=== PATIENT | male | born 1965 | race African-American/Black ===

== ENCOUNTER 2019-11-27 10:13 | Inpatient (IN) | payer OTHER ==
[2019-11-27 11:24] VITALS: BMI 18.3
--- NOTE | 2019-11-27 11:45 | HP ---
CIWA Score Nausea/Vomitin-Mild Nausea/No Vomiting Muscle Tremors: 2 Anxiety: 3 Agitation: 3 Paroxysmal Sweats: No Perspiration Orientation: 0-Oriented Tacttile Disturbances: 1-Very Mild Itch/Numbness Auditory Disturbances: 0-None Visual Disturbances: 1-Very Mild Sensitivity Headache: 2-Mild CIWA-Ar Total Score: 13 - Admission Criteria OASAS Guidelines: Admission for Medically Managed Detox: Requires at least one of the followin. CIWA greater than 12 2. Seizures within the past 24 hours 3. Delirium tremens within the past 24 hours 4. Hallucinations within the past 24 hours 5. Acute intervention needed for co occurring medical disorder 6. Acute intervention needed for co occurring psychiatric disorder 7. Severe withdrawal that cannot be handled at a lower level of care (continued vomiting, continued diarrhea, abnormal vital signs) requiring intravenous medication and/or fluids 8. 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: Peripheral Neuropathy Cardiovascular: Yes: HTN - Smoking History Smoking history: Current every day smoker Have you smoked in the past 12 months: Yes Aproximately how many cigarettes per day: 20 - Alcohol/Substance Use Hx Alcohol Use: No Admission ROS BHS - HPI Chief Complaint: I drink all day and smoke crack - I want to stop - I lost too much weight - i want to get myself back together - I can't do it by myself - I want to go to rehab after detox Allergies/Adverse Reactions: Allergies Allergy/AdvReac Type Severity Reaction Status Date / Time No Known Drug Allergies Allergy Verified 11/27/19 10:57 tomato Allergy Verified 11/27/19 10:57 History of Present Illness: 54 yo gentleman with AIDS here for detox from alcohol, also using crack. Denies seizures but does have black outs. Previously here in 2016. States he has been drinking for 42 years and has had multiple admissions elsewhere for detox and rehab. Patient on disability , lives in [facility] in [place]. Per [facility] patient has been prescribed suboxone for over a year - states previously was on methadone program - he states he does not take the suboxone ( urine tox negative for buprenorphine) and it's at his home and is refusing to take it here. History of heroin use a week ago - states he snorts it once a month 'when I can get it'. He states he was in [facility] 11/23-11/25/19 but left AMA as he had a court date - he thinks he was treated for a cough - he did not bring the discharge papers - the hospital was contacted and some information was sent - CXR normal - no evidence of disease; flu A and B and RSV were negative, troponin <.01, blood culture 11/23/19 preliminary results negative, lactate 1.8, EKG showed normal sinus rhythm. Patient came in with medication bottles including antibiotics - dated 11/18/19 - these will be continued. Exam Limitations: No Limitations - Review of Systems Constitutional: Loss of Appetite, Changes in sleep, Weakness, Unintentional Wgt. Loss EENT: reports: No Symptoms Reported Respiratory: reports: Cough Cardiac: reports: No Symptoms Reported GI: reports: Nausea, Poor Appetite, Vomiting, Abdominal cramping : reports: Frequency Musculoskeletal: reports: No Symptoms Reported Integumentary: reports: Dryness Neuro: reports: Headache, Numbness Endocrine: reports: No Symptoms Reported Hematology: reports: No Symptoms Reported Psychiatric: reports: Judgement Intact, Mood/Affect Appropiate, Anxious Other Systems: Reviewed and Negative Patient History - Patient Medical History Hx Anemia: No Hx Asthma: Yes (has inhaler) Hx Chronic Obstructive Pulmonary Disease (COPD): No Hx Cancer: No Hx Cardiac Disorders: No Hx Congestive Heart Failure: No Hx Hypertension: Yes (poor adherence with meds) Hx Hypercholesterolemia: Yes (poor adherence) Hx Pacemaker: No HX Cerebrovascular Accident: No Hx Seizures: No Hx Dementia: No Hx Diabetes: No Hx Gastrointestinal Disorders: No Hx Liver Disease: No Hx Genitourinary Disorders: No Hx Sexually Transmitted Disorders: No (DENIES) Hx Renal Disease (ESRD): No Hx Thyroid Disease: No Hx Human Immunodeficiency Virus (HIV): Yes (diagnosed in 1997; no meds - thinks CD4=52 ) Hx Hepatitis C: Yes (treated 2017) Hx Depression: No Hx Suicide Attempt: No (DENIES) Hx Bipolar Disorder: No Hx Schizophrenia: No Other Medical History: eczema - Patient Surgical History Past Surgical History: No Hx Neurologic Surgery: No Hx Cataract Extraction: No Hx Cardiac Surgery: No Hx Lung Surgery: No Hx Breast Surgery: No Hx Breast Biopsy: No Hx Abdominal Surgery: No Hx Appendectomy: No Hx Cholecystectomy: No Hx Genitourinary Surgery: No Hx Section: No Hx Orthopedic Surgery: No Hx Hysterectomy: No Anesthesia Reaction: No - PPD History Previous Implant?: Yes Documented Results: Negative w/proof Implanted On Prior [facility] Admission?: Yes Date: 06/06/16 PPD to be Administered?: No - Reproductive History Patient is a Female of Child Bearing Age (11 -55 yrs old): No - Smoking Cessation Smoking history: Current every day smoker Have you smoked in the past 12 months: Yes Aproximately how many cigarettes per day: 20 Hx Chewing Tobacco Use: No Initiated information on smoking cessation: Yes 'Breaking Loose' booklet given: 11/27/19 (give on floor) - Substance & Tx. History Hx Alcohol Use: Yes Hx Substance Use: Yes Substance Use Type: Alcohol, Cocaine Hx Substance Use Treatment: Yes (detox, rehab) - Substances abused Alcohol Substance route: Oral Frequency: Daily Amount used: 8 quart of beer Age of first use: 15 Date of last use: 11/27/19 Crack Substance route: Smoking Frequency: Daily Amount used: $1000 Age of first use: 26 Date of last use: 11/27/19 Admission Physical Exam S - Vital Signs Vital Signs: Vital Signs - 24 hr 11/27/19 11:14 Temperature 100.4 F H Pulse Rate 101 H Respiratory 20 Rate Blood Pressure 125/76 - Physical General Appearance: Yes: Appropriately Dressed, Mild Distress, Thin, Irritable, Anxious HEENTM: Yes: EOMI, Hearing grossly Normal, Normocephalic, Normal Voice, Pharynx Normal Respiratory: Yes: No Respiratory Distress, Rhonchi Neck: Yes: No masses,lesions,Nodules Breast: Yes: Breast Exam Deferred Cardiology: Yes: Regular Rhythm, Tachycardia Abdominal: Yes: Flat, Soft Genitourinary: Yes: Frequency Back: Yes: Normal Inspection Musculoskeletal: Yes: full range of Motion, Gait Steady Extremities: Yes: Normal Inspection, Normal Range of Motion, Tremors Neurological: Yes: Normal Mood/Affect, Normal Response, Numbness Integumentary: Yes: Normal Color, Dry, Warm, Rash (dry, ashy skin arms and legs - states eczema - no open sores noted) Lymphatic: Yes: Within Normal Limits - Diagnostic (1) Alcohol dependence with withdrawal, uncomplicated Current Visit: Yes Status: Chronic (2) AIDS (acquired immune deficiency syndrome) Current Visit: Yes Status: Chronic (3) Cocaine dependence, uncomplicated Current Visit: Yes Status: Chronic (4) Eczema Current Visit: Yes Status: Chronic Qualifiers: Eczema type: unspecified Qualified Code(s): L30.9 - Dermatitis, unspecified (5) Weight loss observed on examination Current Visit: Yes Status: Chronic (6) Cough Current Visit: Yes Status: Acute (7) 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 Current Visit: Yes Status: Chronic (8) Heroin abuse Current Visit: Yes Status: Chronic (9) Underweight Current Visit: Yes Status: Acute Comment: patient has lost about 70lbs since 2014 Cleared for Admission S - Detox or Rehab [facility] Level of Care: Medically Managed Detox Regimen/Protocol: Librium Breathalyzer - Breathalyzer Breathalyzer: 0.003 Urine Drug Screen - Test Device Lot number: [id number] Expiration date: 09/20/21 - Control Is test valid?: Yes - Results Drug screen NEGATIVE: No Urine drug screen results: GLORIA-Cocaine Inpatient Rehab Admission - Rehab Decision to Admit Inpatient rehab admission?: No
[2019-11-27] MEDS ORDERED: guaiFENesin 200 MG/10 ML 10 ML UNIT-DOSE CUPS PO PRN (12:56)
[2019-11-27] MEDS ORDERED: MAGNESIUM HYDROX 2400MG/30ML ORAL SUSPENSION 30 ML CUP PO PRN (12:56)
[2019-11-27] MEDS ORDERED: ACETAMINOPHEN 325 MG TABLET (FP) PO PRN ×2 (12:56)
[2019-11-27] MEDS ORDERED: IBUPROFEN 400 MG TABLET (FP) PO PRN (12:56)
[2019-11-27] MEDS ORDERED: MENTHOL/PHENOL 1 EACH UD MM PRN (12:56)
[2019-11-27] MEDS ORDERED: MAG HYDROX/AL HYDROX/SIMETH 30 ML UNIT-DOSE CUP PO PRN (12:56)
[2019-11-27] MEDS ORDERED: NICOTINE POLACRILEX 4 MG GUM BUC PRN (12:56)
[2019-11-27] MEDS ORDERED: MAGNESIUM CITRATE 300 ML BOTTLE PO PRN (12:56)
[2019-11-27] MEDS ORDERED: BISMUTH SUBSALICYLATE 524 MG/30 ML UD PO PRN (12:56)
[2019-11-27] MEDS ORDERED: METHOCARBAMOL 500 MG TABLET PO PRN (12:56)
[2019-11-27] MEDS ORDERED: chlordiazePOXIDE HCL 25 MG CAPSULE PO PRN (12:59)
[2019-11-27] MEDS ORDERED: ALBUTEROL SO4 8 GM HFA INHALER IH PRN (12:59)
[2019-11-27] MEDS ORDERED: chlordiazePOXIDE HCL 25 MG CAPSULE PO ONE (12:59)
[2019-11-27] MEDS ORDERED: AZITHROMYCIN 600 MG TABLET PO SCH (13:00)
[2019-11-27] MEDS ORDERED: AMMONIUM LACTATE 12% LOTION 225 GM BOTTLE TP PRN (13:04)
[2019-11-27] MEDS ORDERED: COLLOIDAL OATMEAL 1 BAR EACH TP PRN (13:04)
--- NOTE | 2019-11-27 16:29 | EKG ---
Test Reason : Blood Pressure : / mmHG Vent. Rate : 089 BPM Atrial Rate : 089 BPM P-R Int : 120 ms QRS Dur : 082 ms QT Int : 382 ms P-R-T Axes : 087 085 080 degrees QTc Int : 464 ms NORMAL SINUS RHYTHM NORMAL ECG NO PREVIOUS ECGS AVAILABLE Confirmed by MD SAMARIA, MELISSA ([id number]) on 11/27/2019 4:29:09 PM Referred By: Lowell Rosario Confirmed By:MELISSA MERA MD
[2019-11-27] MEDS: chlordiazePOXIDE HCL 25 MG CAPSULE PO SCH ×2 (17:30→23:20)
[2019-11-27] MEDS ORDERED: MELATONIN 5 MG TABLETS PO PRN (22:00)
[2019-11-27] MEDS: FLUCONAZOLE 100 MG TABLET (UD) PO SCH (23:09)
[2019-11-27] MEDS: RIFAXIMIN 550 MG TABLET (UD) PO SCH (23:13)
[2019-11-27] MEDS: ATORVASTATIN CA 40 MG TABLET (FP) PO SCH (23:21)
[2019-11-27] MEDS: THIAMINE HCL 100 MG TABLET (FP) PO SCH (23:21)
[2019-11-27] MEDS: AMOX TR/POT CLAV 875MG/125MG TABLETS (FP) PO SCH (23:21)
[2019-11-28] MEDS: chlordiazePOXIDE HCL 25 MG CAPSULE PO SCH ×4 (06:35→22:46)
[2019-11-28] MEDS: AMOX TR/POT CLAV 875MG/125MG TABLETS (FP) PO SCH ×2 (07:08→17:39)
[2019-11-28] MEDS ORDERED: ASPIRIN 81 MG CHEWABLE TABLETS PO SCH (10:00)
[2019-11-28] MEDS ORDERED: PRENATAL VITAMINS W/ FOLIC ACID TABLET (FP) PO SCH (10:00)
[2019-11-28] MEDS ORDERED: amLODIPine BESYLATE 10 MG TABLET (FP) PO SCH (10:00)
[2019-11-28] MEDS: FLUCONAZOLE 100 MG TABLET (UD) PO SCH (11:14)
[2019-11-28 12:10] LABS: HEMATOCRIT 30.4 % (35.4-49); HEMOGLOBIN 10.2 GM/dL (11.7-16.9); MCH 30.7 pg (25.7-33.7); MCHC 33.5 g/dl (32.0-35.9); MEAN CELL VOLUME 91.8 fl (80-96); MEAN PLT VOLUME 8.1 fl (7.5-11.1); PLATELET COUNT 225 K/MM3 (134-434); RBC 3.31 M/mm3 (4.00-5.60); RDW 14.4 % (11.9-15.9); WHITE BLOOD COUNT 5.9 K/mm3 (4.0-10.0)
[2019-11-28 12:13] LABS: ALBUMIN 2.2 g/dl (3.4-5.0); BILIRUBIN,TOTAL 0.2 mg/dL (0.2-1); BLOOD UREA NITROGEN 13.7 mg/dL (7-18); CALCIUM 8.2 mg/dL (8.5-10.1); POTASSIUM 3.9 mmol/L (3.5-5.1); TOT PROT 7.2 g/dl (6.4-8.2)
--- NOTE | 2019-11-28 12:52 | PN ---
[facility] CIWA - CIWA Score Nausea/Vomitin-Mild Nausea/No Vomiting Muscle Tremors: 3 Anxiety: 2 Agitation: 0-Normal Activity Paroxysmal Sweats: 2 Orientation: 0-Oriented Tacttile Disturbances: 0-None Auditory Disturbances: 1-Very Mild Visual Disturbances: 1-Very Mild Sensitivity Headache: 0-None Present CIWA-Ar Total Score: 10 S Progress Note (SOAP) Subjective: 54 years old male admitted on 11/27/19 for alcohol withdrawal sx management treating with libium detox regiment patient is taking augmentin zithromax and bacitracin negative chest x ray negative bleed culture - [facility] patient had one low grade fever yesterday 11/27/19 doing ok today Objective: 11/28/19 12:55 Vital Signs Temperature 96.7 F L 11/28/19 11:25 Pulse Rate 116 H 11/28/19 11:25 Respiratory Rate 18 11/28/19 11:25 Blood Pressure 124/72 11/28/19 11:25 O2 Sat by Pulse Oximetry (%) Laboratory Last Values WBC 5.9 K/mm3 (4.0-10.0) 11/28/19 07:20 RBC 3.31 M/mm3 (4.00-5.60) L 11/28/19 07:20 Hgb 10.2 GM/dL (11.7-16.9) L 11/28/19 07:20 Hct 30.4 % (35.4-49) L D 11/28/19 07:20 MCV 91.8 fl (80-96) 11/28/19 07:20 MCH 30.7 pg (25.7-33.7) 11/28/19 07:20 MCHC 33.5 g/dl (32.0-35.9) 11/28/19 07:20 RDW 14.4 % (11.9-15.9) 11/28/19 07:20 Plt Count 225 K/MM3 (134-434) 11/28/19 07:20 MPV 8.1 fl (7.5-11.1) D 11/28/19 07:20 Sodium 140 mmol/L (136-145) 11/28/19 07:20 Potassium 3.9 mmol/L (3.5-5.1) 11/28/19 07:20 Chloride 107 mmol/L (98-107) 11/28/19 07:20 Carbon Dioxide 26 mmol/L (21-32) 11/28/19 07:20 Anion Gap 7 MMOL/L (8-16) L 11/28/19 07:20 BUN 13.7 mg/dL (7-18) 11/28/19 07:20 Creatinine 1.0 mg/dL (0.55-1.3) 11/28/19 07:20 Est GFR (CKD-EPI)AfAm 97.08 11/28/19 07:20 Est GFR (CKD-EPI)NonAf 83.76 11/28/19 07:20 Random Glucose 115 mg/dL (74-106) H 11/28/19 07:20 Calcium 8.2 mg/dL (8.5-10.1) L 11/28/19 07:20 Total Bilirubin 0.2 mg/dL (0.2-1) 11/28/19 07:20 AST 15 U/L (15-37) 11/28/19 07:20 ALT 13 U/L (13-61) 11/28/19 07:20 Alkaline Phosphatase 46 U/L (45-117) 11/28/19 07:20 Total Protein 7.2 g/dl (6.4-8.2) 11/28/19 07:20 Albumin 2.2 g/dl (3.4-5.0) L 11/28/19 07:20 lab noted Assessment: 11/28/19 12:56 alcohol withdrawal Plan: librium regiment
[2019-11-28] MEDS: RIFAXIMIN 550 MG TABLET (UD) PO SCH ×2 (15:16→22:45)
[2019-11-28] MEDS: THIAMINE HCL 100 MG TABLET (FP) PO SCH (22:45)
[2019-11-28] MEDS: ATORVASTATIN CA 40 MG TABLET (FP) PO SCH (22:45)
[2019-11-29] MEDS ORDERED: chlordiazePOXIDE HCL 25 MG CAPSULE PO SCH (05:00)
[2019-11-29 06:39] VITALS: BP 126/67; PULSE 81; TEMP 97.4
[2019-11-29] MEDS: AMOX TR/POT CLAV 875MG/125MG TABLETS (FP) PO SCH (07:13)
--- NOTE | 2019-11-29 10:04 | PN ---
S CIWA - CIWA Score Nausea/Vomitin-No Nausea/No Vomiting Muscle Tremors: 2 Anxiety: 2 Agitation: 1-Slight > Activity Paroxysmal Sweats: 2 Orientation: 0-Oriented Tacttile Disturbances: 0-None Auditory Disturbances: 0-None Visual Disturbances: 0-None Headache: 0-None Present CIWA-Ar Total Score: 7 BHS Progress Note (SOAP) Subjective: 54 years old male admitted on 11/28/19 for opiate withdrawal sx management t treating with librium detox regiment feeling ok today ambulating with cane from bed to bathroom steady gait determines to maintain sober through aftercare recovery Objective: 11/29/19 10:32 Vital Signs Temperature 97.4 F L 11/29/19 05:30 Pulse Rate 81 11/29/19 05:30 Respiratory Rate 18 11/29/19 05:30 Blood Pressure 126/67 11/29/19 05:30 O2 Sat by Pulse Oximetry (%) Laboratory Last Values WBC 5.9 K/mm3 (4.0-10.0) 11/28/19 07:20 RBC 3.31 M/mm3 (4.00-5.60) L 11/28/19 07:20 Hgb 10.2 GM/dL (11.7-16.9) L 11/28/19 07:20 Hct 30.4 % (35.4-49) L D 11/28/19 07:20 MCV 91.8 fl (80-96) 11/28/19 07:20 MCH 30.7 pg (25.7-33.7) 11/28/19 07:20 MCHC 33.5 g/dl (32.0-35.9) 11/28/19 07:20 RDW 14.4 % (11.9-15.9) 11/28/19 07:20 Plt Count 225 K/MM3 (134-434) 11/28/19 07:20 MPV 8.1 fl (7.5-11.1) D 11/28/19 07:20 Sodium 140 mmol/L (136-145) 11/28/19 07:20 Potassium 3.9 mmol/L (3.5-5.1) 11/28/19 07:20 Chloride 107 mmol/L (98-107) 11/28/19 07:20 Carbon Dioxide 26 mmol/L (21-32) 11/28/19 07:20 Anion Gap 7 MMOL/L (8-16) L 11/28/19 07:20 BUN 13.7 mg/dL (7-18) 11/28/19 07:20 Creatinine 1.0 mg/dL (0.55-1.3) 11/28/19 07:20 Est GFR (CKD-EPI)AfAm 97.08 11/28/19 07:20 Est GFR (CKD-EPI)NonAf 83.76 11/28/19 07:20 Random Glucose 115 mg/dL (74-106) H 11/28/19 07:20 Calcium 8.2 mg/dL (8.5-10.1) L 11/28/19 07:20 Total Bilirubin 0.2 mg/dL (0.2-1) 11/28/19 07:20 AST 15 U/L (15-37) 11/28/19 07:20 ALT 13 U/L (13-61) 11/28/19 07:20 Alkaline Phosphatase 46 U/L (45-117) 11/28/19 07:20 Total Protein 7.2 g/dl (6.4-8.2) 11/28/19 07:20 Albumin 2.2 g/dl (3.4-5.0) L 11/28/19 07:20 RPR Titer Nonreactive (NONREACTIVE) 11/28/19 07:20 lab noted Assessment: 11/29/19 10:32 alcohol withdrawal Plan: librium regiment
--- NOTE | 2019-11-29 11:42 | DS ---
[facility] Detox Discharge Summary Admission Date: 11/27/19 Discharge Date: 11/29/19 - History Present History: Alcohol Dependence Additional Comments: 54 years old male admitted on 11/27/19 for alcohol withdrawal sx management treated with librium detox regiment patient insists to leave the detox unit that "slipper" is not allow in detox unit reports "down stair" doctor granted Mr Wood with the slipper patient is slipper preoccupied at this time insists to leave the detox unit against medical advice is appropriated - Physical Exam Results Vital Signs: Vital Signs Temperature 97.4 F L 11/29/19 05:30 Pulse Rate 81 11/29/19 05:30 Respiratory Rate 18 11/29/19 05:30 Blood Pressure 126/67 11/29/19 05:30 O2 Sat by Pulse Oximetry (%) Pertinent Admission Physical Exam Findings: alcohol withdrawal Laboratory Last Values WBC 5.9 K/mm3 (4.0-10.0) 11/28/19 07:20 RBC 3.31 M/mm3 (4.00-5.60) L 11/28/19 07:20 Hgb 10.2 GM/dL (11.7-16.9) L 11/28/19 07:20 Hct 30.4 % (35.4-49) L D 11/28/19 07:20 MCV 91.8 fl (80-96) 11/28/19 07:20 MCH 30.7 pg (25.7-33.7) 11/28/19 07:20 MCHC 33.5 g/dl (32.0-35.9) 11/28/19 07:20 RDW 14.4 % (11.9-15.9) 11/28/19 07:20 Plt Count 225 K/MM3 (134-434) 11/28/19 07:20 MPV 8.1 fl (7.5-11.1) D 11/28/19 07:20 Sodium 140 mmol/L (136-145) 11/28/19 07:20 Potassium 3.9 mmol/L (3.5-5.1) 11/28/19 07:20 Chloride 107 mmol/L (98-107) 11/28/19 07:20 Carbon Dioxide 26 mmol/L (21-32) 11/28/19 07:20 Anion Gap 7 MMOL/L (8-16) L 11/28/19 07:20 BUN 13.7 mg/dL (7-18) 11/28/19 07:20 Creatinine 1.0 mg/dL (0.55-1.3) 11/28/19 07:20 Est GFR (CKD-EPI)AfAm 97.08 11/28/19 07:20 Est GFR (CKD-EPI)NonAf 83.76 11/28/19 07:20 Random Glucose 115 mg/dL (74-106) H 11/28/19 07:20 Calcium 8.2 mg/dL (8.5-10.1) L 11/28/19 07:20 Total Bilirubin 0.2 mg/dL (0.2-1) 11/28/19 07:20 AST 15 U/L (15-37) 11/28/19 07:20 ALT 13 U/L (13-61) 11/28/19 07:20 Alkaline Phosphatase 46 U/L (45-117) 11/28/19 07:20 Total Protein 7.2 g/dl (6.4-8.2) 11/28/19 07:20 Albumin 2.2 g/dl (3.4-5.0) L 11/28/19 07:20 RPR Titer Nonreactive (NONREACTIVE) 11/28/19 07:20 lab noted - Treatment Hospital Course: Detox Protocol Followed Patient has Accepted a Rehab Referral to: [facility] - Medication Discharge Medications: Ambulatory Orders Albuterol Sulfate Inhaler - [Ventolin HFA Inhaler -] 1 - 2 inh PO PRN PRN Amlodipine Besylate [Norvasc -] 10 mg PO DAILY 11/27/19 Amoxicillin/Potassium Clav [Augmentin 875-125 Tablet] 1 each PO BID 11/27/19 Aspirin [ASA -] 81 mg PO DAILY 11/27/19 Atorvastatin Calcium 40 mg PO HS 11/27/19 Azithromycin [Zithromax 600mg Tablets -] 1,200 mg PO WEEKLY 11/27/19 Buprenorphine/Naloxone [Suboxone 8Mg/2Mg Sl Film -] 1 each SL TID 11/27/19 Fluconazole [Diflucan -] 100 mg PO DAILY 11/27/19 Multivitamins [Multivit ([facility] Formulary)] 1 tab PO DAILY 11/27/19 Propranolol HCl [Propranolol HCl ER] 80 mg PO DAILY 11/27/19 Rifaximin [Xifaxan -] 550 mg PO BID 11/27/19 Sulfamethoxazole/Trimethoprim [Sulfamethoxazole-Tmp Ss Tablet] 1 each PO MOWEFR 11/27/19 Zolpidem Tartrate [Ambien] 10 mg PO HS 11/27/19 - Diagnosis (1) AIDS (acquired immune deficiency syndrome) Status: Chronic (2) Alcohol dependence with withdrawal, uncomplicated Status: Acute (3) Eczema Status: Chronic Qualifiers: Eczema type: unspecified Qualified Code(s): L30.9 - Dermatitis, unspecified (4) Hypertension Status: Chronic Qualifiers: Hypertension type: essential hypertension Qualified Code(s): I10 - Essential (primary) hypertension - AMA Did Patient Leave Against Medical Advice: Yes
[2019-11-29] MEDS ORDERED: SULFAMETHOXAZOLE/TRIMETHOPRIM 400MG/80MG S.S. TABLET PO SCH (12:59)
[2019-11-30] MEDS ORDERED: chlordiazePOXIDE HCL 10 MG CAPSULE PO PRN
[2019-11-30] MEDS ORDERED: chlordiazePOXIDE HCL 10 MG CAPSULE PO SCH (05:00)
[2019-12-01] MEDS ORDERED: chlordiazePOXIDE HCL 10 MG CAPSULE PO SCH (05:00)
[2019-12-02] MEDS ORDERED: chlordiazePOXIDE HCL 10 MG CAPSULE PO ONE (05:00)
== END 2019-11-29 09:22 | disposition left against medical advice (07) | DRG 770 ==
LOC: YASAS 10:13 → Y3N 14:06
PROVIDERS: ADMIT Allergy & Immunology; ATTEND Allergy & Immunology
PROC: HZ2ZZZZ Detoxification Services for Substance Abuse Treatment (ICD-10-PCS; principal; 2019-11-27)
DX: F10.230 Alcohol dependence with withdrawal, uncomplicated (principal); F14.20 Cocaine dependence, uncomplicated; F11.10 Opioid abuse, uncomplicated; F17.210 Nicotine dependence, cigarettes, uncomplicated; B20 Human immunodeficiency virus [HIV] disease; I10 Essential (primary) hypertension; E78.00 Pure hypercholesterolemia, unspecified; J45.909 Unspecified asthma, uncomplicated; R63.6 Underweight; Z68.1 Body mass index [BMI] 19.9 or less, adult; Z86.19 Personal history of other infectious and parasitic diseases; Z79.82 Long term (current) use of aspirin; Z91.018 Allergy to other foods; Z99.89 Dependence on other enabling machines and devices
CPT/HCPCS: 36415; 80053; 85027; 86593; 93005; 93010

== ENCOUNTER 2023-04-30 21:07 | Inpatient (IN) | payer OTHER ==
[2023-04-30 22:30] VITALS: BMI 15.8
[2023-05-01] MEDS ORDERED: ACETAMINOPHEN 325 MG TABLET (FP) PO PRN (00:18)
[2023-05-01] MEDS ORDERED: ONDANSETRON *ODT* 4 MG TABLET SL PRN (00:18)
[2023-05-01] MEDS ORDERED: MAG HYDROX/AL HYDROX/SIMETH 30 ML UNIT-DOSE CUP PO PRN (00:18)
[2023-05-01] MEDS ORDERED: guaiFENesin 600 MG TABLET.ER (FP) PO PRN (00:18)
[2023-05-01] MEDS ORDERED: BENZONATATE 200 MG CAPSULE PO PRN (00:18)
[2023-05-01] MEDS ORDERED: LOPERAMIDE HCL 2 MG CAPSULE PO PRN (00:18)
[2023-05-01] MEDS ORDERED: MAGNESIUM HYDROX 2400MG/30ML ORAL SUSPENSION 30 ML CUP PO PRN (00:18)
[2023-05-01] MEDS ORDERED: IBUPROFEN 600 MG TABLET (FP) PO PRN (00:18)
[2023-05-01] MEDS ORDERED: BENZOCAINE/MENTHOL (CHLORASEPTIC ) LOZENGE MM PRN (00:18)
[2023-05-01] MEDS ORDERED: METHOCARBAMOL 500 MG TABLET PO PRN (00:18)
[2023-05-01] MEDS ORDERED: IBUPROFEN 400 MG TABLET (FP) PO PRN (00:18)
[2023-05-01] MEDS ORDERED: NALOXONE HCL 0.4 MG/ML VIAL IM PRN (00:18)
[2023-05-01] MEDS ORDERED: DICYCLOMINE HCL 10 MG CAPSULE PO PRN (00:18)
[2023-05-01] MEDS ORDERED: POLYETHYLENE GLYCOL (HEALTHYLAX) 3350 17 GM PACKET PO PRN (00:18)
[2023-05-01] MEDS ORDERED: NICOTINE POLACRILEX 2 MG GUM BUC PRN (00:18)
[2023-05-01] MEDS ORDERED: BISMUTH SUBSALICYLATE 524 MG/30 ML PO PRN (00:18)
[2023-05-01] MEDS ORDERED: NALOXONE HCL (KLOXXADO) 8 MG SPRAY NS PRN (00:18)
[2023-05-01] MEDS: PRENATAL VITAMINS W/ FOLIC ACID TABLET (FP) PO SCH (10:27)
[2023-05-01] MEDS: NICOTINE 14 MG/24 HOURS TOPICAL PATCH TD SCH (10:27)
[2023-05-01 12:38] LABS: POTASSIUM 4.3 mmol/L (3.5-5.1)
[2023-05-01 12:41] LABS: HEMATOCRIT 28.9 % (35.4-49); HEMOGLOBIN 9.5 GM/dL (11.7-16.9); MCH 29.4 pg (25.7-33.7); MEAN CELL VOLUME 88.9 fl (80-96); MEAN PLT VOLUME 7.9 fl (7.5-11.1); PLATELET COUNT 274 10^3/uL (134-434); RBC 3.25 M/mm3 (4.00-5.60); RDW 18.4 % (11.9-15.9); WHITE BLOOD COUNT 4.4 K/mm3 (4.0-10.0)
[2023-05-01 12:43] LABS: CALCIUM 8.9 mg/dL (8.5-10.1)
[2023-05-01 12:44] LABS: ALBUMIN 2.4 g/dl (3.4-5.0); BLOOD UREA NITROGEN 15.4 mg/dL (7-18)
[2023-05-01 12:47] LABS: CREATININE 0.9 mg/dL (0.55-1.3)
[2023-05-01 12:48] LABS: BILIRUBIN,TOTAL 0.2 mg/dL (0.2-1); TOT PROT 7.4 g/dl (6.4-8.2)
[2023-05-01 16:58] VITALS: RESP 16; TEMP 97.7
[2023-05-01 21:11] VITALS: BP 120/69; PULSE 80
[2023-05-01] MEDS ORDERED: MELATONIN 5 MG TABLETS PO SCH (22:00)
[2023-05-01] MEDS ORDERED: THIAMINE HCL 100 MG TABLET (FP) PO SCH (22:00)
[2023-05-02] MEDS: NICOTINE 14 MG/24 HOURS TOPICAL PATCH TD SCH (09:49)
[2023-05-02] MEDS: PRENATAL VITAMINS W/ FOLIC ACID TABLET (FP) PO SCH (09:49)
== END 2023-05-02 09:09 | disposition home or self-care (01) | DRG 775 ==
LOC: YASAS 21:07 → Y6N 05-01 01:19
PROVIDERS: ADMIT Allergy & Immunology; ATTEND Surgery
PROC: HZ2ZZZZ Detoxification Services for Substance Abuse Treatment (ICD-10-PCS; principal; 2023-05-01)
DX: F10.230 Alcohol dependence with withdrawal, uncomplicated (principal); F12.10 Cannabis abuse, uncomplicated; F17.210 Nicotine dependence, cigarettes, uncomplicated; B20 Human immunodeficiency virus [HIV] disease; G62.9 Polyneuropathy, unspecified; I10 Essential (primary) hypertension; L30.9 Dermatitis, unspecified; R63.4 Abnormal weight loss; Z68.1 Body mass index [BMI] 19.9 or less, adult; Z28.310 Unvaccinated for COVID-19; Z28.9 Immunization not carried out for unspecified reason; Z59.00 Homelessness unspecified; Z79.899 Other long term (current) drug therapy
CPT/HCPCS: 36415; 80053; 82607; 82746; 83540; 83550; 85027; 86780; 87635; 93005; 93010